=== PATIENT | male | born 1970 | race African-American/Black ===

== ENCOUNTER 2018-07-21 15:54 | Emergency (ER) | payer SELFPAY ==
[~2018-07-21] VITALS: Ht 177.8 cm; Wt 90.7 kg
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
--- NOTE | 2018-07-21 16:18 | NUR ---
DR. HOOVER AT BEDSIDE FOR EVAL.
[2018-07-21] MEDS ORDERED: KETOROLAC TROMETHAMINE 15 MG/ML VIAL ONE (16:28)
[2018-07-21] MEDS ORDERED: ACETAMINOPHEN 325 MG TABLET ONE (16:28)
[2018-07-21] MEDS ORDERED: ACETAMINOPHEN 325 MG TABLET PO ONE (16:30)
[2018-07-21] MEDS ORDERED: KETOROLAC TROMETHAMINE INJ 30 MG/ML VIAL IM ONE (16:30)
[2018-07-21 19:23] VITALS: BP 135/84
--- NOTE | 2018-07-21 19:24 | NUR ---
Patient discharged to home in stable condition. Written and verbal after care instructions given. Patient verbalizes understanding of instruction.
== END 2018-07-21 19:24 | disposition home or self-care (01) ==
LOC: ER 15:56
DX: M79.671 Pain in right foot (principal); M25.511 Pain in right shoulder; Z96.611 Presence of right artificial shoulder joint; Z96.612 Presence of left artificial shoulder joint; V03.10XA Pedestrian on foot injured in collision with car, pick-up truck or van in traffic accident, initial encounter; Y93.89 Activity, other specified; Y92.410 Unspecified street and highway as the place of occurrence of the external cause; Y99.8 Other external cause status
CPT/HCPCS: 73010-TC; 73030-TC; 73630-TC; J1885